=== PATIENT | female | born 1955 | race Caucasian/White ===

== ENCOUNTER → 2020-03-22 11:48 | Outpatient (BNVA) | payer OTHER, SELFPAY | PROVIDERS: Absent Provider Family Medicine; Visit Provider Family Medicine | DX: Z13.6 Encounter for screening for cardiovascular disorders (principal); E03.9 Hypothyroidism, unspecified | CPT/HCPCS: 80053; 80061; 84439; 84443; 84480; 85025 ==

== ENCOUNTER → 2020-12-21 13:41 | Outpatient (BNVA) | payer OTHER, SELFPAY | PROVIDERS: PCP Family Medicine; Visit Provider Family Medicine | DX: E03.9 Hypothyroidism, unspecified (principal); Z85.850 Personal history of malignant neoplasm of thyroid | CPT/HCPCS: 84432; 84439; 84443; 84480; 86800 ==

== ENCOUNTER 2021-01-04 13:04 | Outpatient (CLI) | payer OTHER, SELFPAY ==
--- NOTE | 2021-01-04 13:10 | MM_ITS ---
WS: [id number] Exam: [id number] Date/Time of Exam: 01/04/2021 1:17 PM Reason For Exam: SCREENING VIEWS: MLO and CC views both breasts. No priors. Findings: There was no sign of mass, architectural distortion or suspicious calcification in either breast. He terogeneously dense MM/[place] [id number] Impression: BI-RADS: 2-Benign FOLLOW-UP: 1 Year Follow-up This mammogram was also analyzed by the Computer Aided Detection System R2 Imag e [employer] Supervisor.
== END 2021-01-04 13:05 | disposition home or self-care (01) ==
LOC: RADSHAW 13:08
PROVIDERS: PCP Family Medicine; Visit Provider Family Medicine
DX: Z12.31 Encounter for screening mammogram for malignant neoplasm of breast (principal)
CPT/HCPCS: 77067

== ENCOUNTER → 2021-04-02 16:39 | Outpatient (BNVA) | payer OTHER, SELFPAY | PROVIDERS: PCP Family Medicine; Visit Provider Family Medicine | DX: Z20.822 Contact with and (suspected) exposure to COVID-19 (principal) | CPT/HCPCS: 87635 ==

== ENCOUNTER 2021-04-24 14:58 | Outpatient (CLI) | payer MEDICARE, SELFPAY ==
--- NOTE | 2021-04-24 15:07 | XRR_ITS ---
PROCEDURE INFORMATION: Exam: XR Left Knee Exam date and time: 04/24/2021 3:07 PM Age: 66 years old Clinical indication: Pain; Knee; Left; Additional info: Left knee pain TECHNIQUE: Imaging protocol: XR Left knee. Views: 3 views. COMPARISON: No relevant prior studies available. FINDINGS: Bones/joints: Moderate tricompartmental osteoarthritis. Soft tissues: Normal. XR/XR knee LT 3V* [id number] IMPRESSION: Moderate tricompartmental osteoarthritis.
== END 2021-04-24 14:59 | disposition home or self-care (01) ==
LOC: RAD 15:05
PROVIDERS: PCP Family Medicine; Visit Provider Family Medicine
DX: M17.12 Unilateral primary osteoarthritis, left knee (principal)
CPT/HCPCS: 73562

== ENCOUNTER → 2021-06-04 11:44 | Outpatient (BNVA) | payer MEDICARE, SELFPAY | PROVIDERS: PCP Family Medicine; Visit Provider Family Medicine | DX: Z13.6 Encounter for screening for cardiovascular disorders (principal); M25.562 Pain in left knee; E03.9 Hypothyroidism, unspecified; M17.12 Unilateral primary osteoarthritis, left knee; Z91.09 Other allergy status, other than to drugs and biological substances | CPT/HCPCS: 80053; 80061; 84439; 84443; 84480; 85025 ==

== ENCOUNTER 2021-09-24 14:14 | Outpatient (CLI) | payer MEDICARE, SELFPAY ==
--- NOTE | 2021-09-24 14:22 | XR_ITS ---
WS: [id number] XR hip LT 2-3V wo/w pel* [id number] REASON FOR EXAM: left hip pain FINDINGS: No fracture or focal bone lesion. Severe narrowing of the joint space with subchondral sclerosis and marginal osteophytosis of the acet abulum and femoral head. There appears to be [id number] articulation with flattening of the underly ing femoral head in the weightbearing portion of the joint. No soft tissue abnormality. XR/XR hip LT 2-3V wo/w pel* [id number] IMPRESSION: Severe osteoarthritis of the left hip with [id number] articulation and deform ity of the femoral head.
--- NOTE | 2021-09-24 14:22 | XR_ITS ---
WS: [id number] XR lumbar spine 2-3V* [id number] REASON FOR EXAM: chronic back pain FINDINGS: Mild rotatory scoliosis convex left. Mild biconcave compression deformities L1-L3. Most likely chronic. Significant narrowing of the L4-L5 disc space with endplate sclerosis. Moderate narrowing of the L5-S1 disc space with endplate sclerosis. 6 mm of anterolisthesis of L3 on L4. 4 mm of anterolisthesis of bowel 2 on L3. Degenerative facet joint changes L3-S1. XR/XR lumbar spine 2-3V* [id number] IMPRESSION: Degenerative spondylosis in the lumbar spine as above.
== END 2021-09-24 14:15 | disposition home or self-care (01) ==
PROVIDERS: PCP Family Medicine; Visit Provider Family Medicine
DX: M54.50 Low back pain, unspecified (principal); G89.29 Other chronic pain; M25.552 Pain in left hip
CPT/HCPCS: 72100; 73502

== ENCOUNTER 2021-12-01 16:56 | Emergency (ER) | payer MEDICARE, SELFPAY ==
[2021-12-01 17:02] VITALS: BP 154/66; PULSE 83; RESP 16; TEMP 36.5; O2SAT 95; BMI 25.0
--- NOTE | 2021-12-01 17:28 | W.ED.GENADLT ---
HPI - General Adult General: Chief complaint: General Medical Stated complaint: Knot in stomach Time Seen by Provider: 12/01/21 17:13 Source: patient Mode of arrival: ambulatory Limitations: no limitations History of Present Illness: Onset (ago): minute(s) Location: head Severity: mild PFSH ED PFSH: Medical History COVID-19 History of thyroid cancer Surgical History History of thyroidectomy, total Family History Brother ALS (amyotrophic lateral sclerosis) Mother Cancer kidney cancer and thyroid cancer Thyroid disease Father Diabetes Parkinson disease Thyroid disease Cancer thyroid cancer Grandmother Stroke Maternal Denies family history of Ovarian cyst Clotting disorder Hyperlipidemia Chronic kidney disease (CKD) Anesthesia complication Bleeding disorder Hypertension Social History Smoking and tobacco status: never smoked Alcohol intake: current Alcohol intake frequency: holidays/special occasions only Course Vital Signs: Vital signs: Vital Signs Temperature 97.7 F 12/01/21 17:02 Pulse Rate 79 12/01/21 17:43 Respiratory Rate 16 12/01/21 17:43 Blood Pressure 164/83 12/01/21 17:43 Pulse Oximetry 97 12/01/21 17:43 Oxygen Delivery Me thod 12/01/21 17:43 [facility] [place] - General Adult Lab Data : 12/01/21 17:58 12/01/21 17:58 Discharge Plan Discharge Condition: Stable Prescriptions: No Action multivitamin [Daily Multi-Vitamin] Tablet 1 tab PO DAILY garlic 300 mg capsule 300 mg PO DAILY Adult 50 Plus Probiotic 4 billion cell capsule 4,000 mmu cells PO DAILY Rx Instructions: administer with a meal turmeric 400 mg capsule 400 mg PO DAILY omega-3 fatty acids [Fish Oil Concentrate] 1,000 mg capsule 1,000 mg PO DAILY meloxicam [Mobic] 15 mg tablet 15 mg PO DAILY Qty: 90 1RF thyroid (pork) [[place] Thyroid] 15 mg tablet See Rx Instructions .ROUTE .COMPLEX Qty: 90 0RF Dose Instruction: TAKE 1 TABLET BY MOUTH EVERY DAY Rx Instructions: TAKE 1 TABLET BY MOUTH EVERY DAY thyroid (pork) [[place] Thyroid] 60 mg tablet 60 mg PO DAILY 90 Days Qty: 90 1RF Referrals: Kimberlyn Dillard DO [Primary Care Provider] - Coding Level of Care Code ED Vault Person for Chg Susi
[2021-12-01 17:43] VITALS: BP 164/83; PULSE 79; RESP 16; O2SAT 97
[2021-12-01 18:05] LABS: Basophils # 0.1 10^3/uL (0.0-0.1); Basophils % 0.7 %; Eosinophils # 0.1 10^3/uL (0.0-0.8); Eosinophils % 0.7 %; Hemoglobin 12.4 g/dL (11.5-15.3); Lymphocytes # 1.5 10^3/uL (0.8-4.8); Lymphocytes % 19.9 %; Mean Corpuscular HGB Conc 31.8 g/dL (30.0-36.0); Mean Corpuscular Hemoglobin 31.2 pg (28.0-34.0); Mean Corpuscular Volume 98.2 fl (81-99); Mean Platelet Volume 10.2 fL (7.4-10.4); Monocytes # 0.6 10^3/uL (0.2-0.9); Monocytes % 7.6 %; Neutrophils # 5.45 10^3/uL (1.8-7.7); Neutrophils % 70.8 %; Nucleated Red Blood Cells % 0 %; Platelet Count 191 10^3/cmm (130-400); Red Blood Count 3.97 10^6/uL (4.1-5.3); White Blood Count 7.7 10^3/uL (4.0-10.0)
--- NOTE | 2021-12-01 18:07 | CTR_ITS ---
PROCEDURE INFORMATION: Exam: CT Abdomen And Pelvis Without Contrast Exam date and time: 12/01/2021 6:16 PM Age: 66 years old Clinical indication: Abdominal pain; Additional info: Abd pain TECHNIQUE: Imaging protocol: Computed tomography of the abdomen and pelvis without contrast. Radiation optimization: All CT scans at this facility use at least one of these dose optimization techniques: automated exposure control; mA and/or kV adjustment per patient size (includes targeted exams where dose is matched to clinical indication); or iterative reconstruction. COMPARISON: CR XR hip LT 2-3V wo/w pel* [id number] 09/24/2021 2:27 PM RADIATION DOSE METRICS: Total DLP (mGy-cm): 496.5 FINDINGS: Liver: Normal. No mass. Gallbladder and bile ducts: Normal. No calcified stones. No ductal dilation. Pancreas: Normal. No ductal dilation. Spleen: Normal. No splenomegaly. Adrenal glands: Normal. No mass. Kidneys and ureters: Normal. No hydronephrosis. Stomach and bowel: Unremarkable. No obstruction. No mucosal thickening. Appendix: No evidence of appendicitis. Intraperitoneal space: Unremarkable. No free air. No significant fluid collection. Vasculature: Unremarkable. No abdominal aortic aneurysm. Lymph nodes: Unremarkable. No enlarged lymph nodes. Urinary bladder: Unremarkable as visualized. Reproductive: Unremarkable as visualized. Bones/joints: Severe left hip osteoarthritis. Soft tissues: Unremarkable. CT/CT abdomen pelvis wo con [id number] IMPRESSION: Negative for acute inflammatory process in the abdomen or pelvis.
--- NOTE | 2021-12-01 18:09 | W.ED.GENADLT ---
HPI - General Adult General: Chief complaint: General Medical Stated complaint: Knot in stomach Time Seen by Provider: 12/01/21 17:13 Source: patient Mode of arrival: ambulatory Limitations: no limitations History of Present Illness: 66-year-old female states that she been having some lower abdominal pain she states that she felt like she felt a palpable mass called a nurse and was concerned she may have an aneurysm states her pain is diffuse in nature rates it a 3 out of 10 denies any worsening improving factors. Associated symptoms: Deny chest pain, dyspnea, headache(s), nausea, rash or vomiting Review of Systems Const: Denies: fever(s), chills, body aches or change in appetite Eyes: Denies: blurry vision or eye discomfort ENMT: Denies: throat pain or dental pain Card: Denies: chest pain Resp: Denies: dyspnea GI: Denies: abdominal pain, nausea, vomiting or diarrhea : Denies: dysuria Musc: Denies: neck pain or back pain Skin/Breast: Denies: rash Neuro: Denies: headache(s) Psych: Denies: depression Alessandro/Lymph: Denies: easy bruising All/Imm: Denies: urticaria PFSH ED PFSH: Medical History COVID-19 History of thyroid cancer Surgical History History of thyroidectomy, total Family History Brother ALS (amyotrophic lateral sclerosis) Mother Cancer kidney cancer and thyroid cancer Thyroid disease Father Diabetes Parkinson disease Thyroid disease Cancer thyroid cancer Grandmother Stroke Maternal Denies family history of Ovarian cyst Clotting disorder Hyperlipidemia Chronic kidney disease (CKD) Anesthesia complication Bleeding disorder Hypertension Social History Smoking and tobacco status: never smoked Alcohol intake: current Alcohol intake frequency: holidays/special occasions only Physical Exam Const: COMMON NORMALS: no acute distress, patient oriented x3 and healthy appearing HENMT: COMMON NORMALS: normocephalic and atraumatic HEAD & SCALP: normocephalic and atraumatic Eye: COMMON NORMALS: Equal, round and reactive pupils present and EOMs intact bilaterally PUPIL: Yes Equal, round and reactive pupils present Neck/C-Spine: COMMON NORMALS: full ROM and supple Chest: COMMONS NORMALS: normal inspection of the chest and normal palpation of entire chest wall Resp: COMMON NORMALS: normal respiratory effort, No retractions, No use of accessory muscles and clear to auscultation bilaterally AUSCULTATION: clear to auscultation bilaterally Cardio: COMMON NORMALS: regular rate, regular rhythm and No murmurs present (Cardio) RATE: regular rate RHYTHM: regular rhythm GI: COMMON NORMALS: Normal to inspection, nondistended, normoactive bowel sounds present, Soft to palpation, non-tender and no masses PALPATION: Yes Soft to palpation Extremity: COMMON NORMALS: normal to inspection and full ROM Neuro: COMMON NORMALS: patient oriented x3, moves all extremities and no focal motor deficits Psych: COMMON NORMALS: mental status grossly normal, Normal thought process present and cooperative THOUGHT PROCESS: Normal thought process present Skin: COMMON NORMALS: no rashes or lesions noted and no wounds GENERAL SKIN EXAM: no rashes or lesions noted Course Vital Signs: Vital signs: Vital Signs Temperature 97.7 F 12/01/21 17:02 Pulse Rate 77 12/01/21 18:49 Respiratory Rate 18 12/01/21 18:49 Blood Pressure 144/84 12/01/21 18:49 Pulse Oximetry 95 12/01/21 18:49 Oxygen Delivery Me thod 12/01/21 18:49 [facility] - General Adult Medical Decision Making Patient presents with abdominal pain is mild in nature she is well-appearing here CT scan is normal she is stable for discharge she is to follow-up with PCP and return if worsening. Lab Data : 12/01/21 17:58 12/01/21 17:58 Radiology Impressions Abdomen/Pelvis CT 12/01/21 18:07 IMPRESSION: Negative for acute inflammatory process in the abdomen or pelvis. Laboratory Results WBC 7.7 10^3/uL (4.0-10.0) 12/01/21 17:58 RBC 3.97 10^6/uL (4.1-5.3) L 12/01/21 17:58 Hgb 12.4 g/dL (11.5-15.3) 12/01/21 17:58 Hct 39.0 % (37.0-47.0) 12/01/21 17:58 MCV 98.2 fl (81-99) 12/01/21 17:58 MCH 31.2 pg (28.0-34.0) 12/01/21 17:58 MCHC 31.8 g/dL (30.0-36.0) 12/01/21 17:58 RDW 12.0 % (12.1-15.1) L 12/01/21 17:58 Plt Count 191 10^3/cmm (130-400) 12/01/21 17:58 MPV 10.2 fL (7.4-10.4) 12/01/21 17:58 Neut % (Auto) 70.8 % 12/01/21 17:58 Lymph % (Auto) 19.9 % 12/01/21 17:58 Person % (Auto) 7.6 % 12/01/21 17:58 Eos % (Auto) 0.7 % 12/01/21 17:58 Baso % (Auto) 0.7 % 12/01/21 17:58 Neut # (Auto) 5.45 10^3/uL (1.8-7.7) 12/01/21 17:58 Lymph # (Auto) 1.5 10^3/uL (0.8-4.8) 12/01/21 17:58 Person # (Auto) 0.6 10^3/uL (0.2-0.9) 12/01/21 17:58 Eos # (Auto) 0.1 10^3/uL (0.0-0.8) 12/01/21 17:58 Baso # (Auto) 0.1 10^3/uL (0.0-0.1) 12/01/21 17:58 Nucleated RBC % (auto) 0 % 12/01/21 17:58 Nucleated RBCs # 0.0 /100WBC 12/01/21 17:58 Sodium 142 mmol/L (136-145) 12/01/21 17:58 Potassium 4.0 mmol/L (3.5-5.1) 12/01/21 17:58 Chloride 103 mmol/L (98-107) 12/01/21 17:58 Carbon Dioxide 29 mmol/L (22-29) 12/01/21 17:58 Anion Gap 14.0 (5-19) 12/01/21 17:58 BUN 12 mg/dL (8-23) 12/01/21 17:58 Creatinine 0.7 mg/dL (0.5-0.9) 12/01/21 17:58 GFR Calculation 84.0 mL/min (90-130) L 12/01/21 17:58 Glucose 94 mg/dL (65-115) 12/01/21 17:58 Calculated Osmolality 294 mOsm/kg (285-295) 12/01/21 17:58 Calcium 9.3 mg/dL (8.5-10.5) 12/01/21 17:58 Total Bilirubin 0.2 mg/dL (0.15-1.2) 12/01/21 17:58 AST 17 U/L (0-32) 12/01/21 17:58 ALT 14 U/L (0-33) 12/01/21 17:58 Alkaline Phosphatase 53 U/L (35-105) 12/01/21 17:58 Total Protein 6.7 g/dL (6.6-8.7) 12/01/21 17:58 Albumin 4.4 g/dL (3.5-5.2) 12/01/21 17:58 Globulin 2.3 g/dL (1.3-4.6) 12/01/21 17:58 Lipase 23 U/L (13-60) 12/01/21 17:58 Discharge Plan Discharge Patient Disposition: Home Clinical Impression: Abdominal pain Condition: Stable Prescriptions: No Action multivitamin [Daily Multi-Vitamin] Tablet 1 tab PO DAILY garlic 300 mg capsule 300 mg PO DAILY Adult 50 Plus Probiotic 4 billion cell capsule 4,000 mmu cells PO DAILY Rx Instructions: administer with a meal turmeric 400 mg capsule 400 mg PO DAILY omega-3 fatty acids [Fish Oil Concentrate] 1,000 mg capsule 1,000 mg PO DAILY meloxicam [Mobic] 15 mg tablet 15 mg PO DAILY Qty: 90 1RF thyroid (pork) [[place] Thyroid] 15 mg tablet See Rx Instructions .ROUTE .COMPLEX Qty: 90 0RF Dose Instruction: TAKE 1 TABLET BY MOUTH EVERY DAY Rx Instructions: TAKE 1 TABLET BY MOUTH EVERY DAY thyroid (pork) [[place] Thyroid] 60 mg tablet 60 mg PO DAILY 90 Days Qty: 90 1RF Discharge Orders: Discharge ED (Routine); Ordered 12/01/21 Ordered By: Keith Yi Referrals: Kimberlyn Dillard DO [Primary Care Provider] - 1-3 days Discharge Diet: Advance as tolerated Discharge Activity: Resume usual activity Patient Instructions: Abdominal Pain (ED) Coding Level of Care Code ED Contract Law Specialist for Chg Fwd Exam Comprehensive
[2021-12-01 18:24] LABS: Alanine Aminotransferase 14 U/L (0-33); Albumin Level 4.4 g/dL (3.5-5.2); Alkaline Phosphatase 53 U/L (35-105); Aspartate Amino Transferase 17 U/L (0-32); Blood Urea Nitrogen 12 mg/dL (8-23); Calcium 9.3 mg/dL (8.5-10.5); Carbon Dioxide 29 mmol/L (22-29); Chloride 103 mmol/L (98-107); Creatinine Clr Calc Pharmacy 73.0358; Globulin 2.3 g/dL (1.3-4.6); Glucose 94 mg/dL (65-115); Lipase 23 U/L (13-60); Osmolality Calculated 294 mOsm/kg (285-295); Sodium 142 mmol/L (136-145); Total Bilirubin 0.2 mg/dL (0.15-1.2); Total Protein 6.7 g/dL (6.6-8.7)
[2021-12-01 18:49] VITALS: BP 144/84; PULSE 77; RESP 18; O2SAT 95
[2021-12-01 19:03] LABS: Add Urine Microscopic? NO; Charge for UA Resulting for Rev
[2021-12-01 19:19] LABS: Bilirubin Urine Neg (Negative); Blood Urine Neg (Negative); Glucose Urine UA Norm (Normal); Ketones Urine Negative (Negative); Nitrate Urine Negative (Negative); Protein Urine Neg (Negative); Specific Gravity, Urine 1.015 (1.005-1.030); Urine Appearance Clear (CLEAR); Urine Color Yellow (Yellow); Urobilinogen Urine Neg (Negative); pH Urine 8 (5-7)
[2021-12-01 19:20] VITALS: BP 145/82; PULSE 74; RESP 18; O2SAT 97
[2021-12-01 19:20] LABS: Leukocyte Esterase Urine Negative (Negative); Sulfosalicylic Acid Urine Negative (Negative)
== END 2021-12-01 19:21 | disposition home or self-care (01) ==
PROVIDERS: Family Medicine; Emergency Provider Emergency Medicine; PCP Family Medicine
DX: R10.30 Lower abdominal pain, unspecified (principal); Z86.16 Personal history of COVID-19
CPT/HCPCS: 36415; 74176; 80053; 81003; 83690; 85025; 99284

== ENCOUNTER → 2022-01-11 12:05 | Outpatient (BNVA) | payer MEDICARE, SELFPAY | PROVIDERS: PCP Family Medicine; Visit Provider Family Medicine | DX: M17.12 Unilateral primary osteoarthritis, left knee (principal); E03.9 Hypothyroidism, unspecified; Z85.850 Personal history of malignant neoplasm of thyroid | CPT/HCPCS: 84432; 84439; 84443; 84480; 86800 ==

== ENCOUNTER 2022-05-21 13:53 | Outpatient (CLI) | payer MEDICARE, SELFPAY ==
--- NOTE | 2022-05-21 14:10 | MM_ITS ---
WS: [id number] BILATERAL 3D TOMOSYNTHESIS DIGITAL SCREENING MAMMOGRAPHY WITH CAD CLINICAL INFORMATION: SCREENING HISTORY: Screening mammogram. No current complaints. COMPARISON: 2020 TECHNIQUE: Bilateral CC and MLO views. FINDINGS: The breasts are composed of heterogeneous fibroglandular density tissue, which can limit the detectio n of small underlying mass lesions. No suspicious mass, asymmetry, calcifications, or architectural d istortion. No evidence of malignancy. Biopsy clip LEFT breast. Punctate and lucent centered calcifica tions. Vascular calcifications. MM/[place] [id number] IMPRESSION: BI-RADS: 2-Benign FOLLOW UP: 1 Year Follow-up Recommend return to annual screening mammography.
== END 2022-05-21 13:54 | disposition home or self-care (01) ==
LOC: RAD 13:58
PROVIDERS: PCP Family Medicine; Visit Provider Family Medicine
DX: Z12.31 Encounter for screening mammogram for malignant neoplasm of breast (principal)
CPT/HCPCS: 77063; 77067

== ENCOUNTER → 2022-08-14 13:31 | Outpatient (BNVA) | payer MEDICARE, SELFPAY | PROVIDERS: PCP Family Medicine; Visit Provider Nurse Practitioner Family | DX: L81.4 Other melanin hyperpigmentation (principal); D22.5 Melanocytic nevi of trunk; Z71.89 Other specified counseling; L85.3 Xerosis cutis; L57.8 Other skin changes due to chronic exposure to nonionizing radiation; L98.8 Other specified disorders of the skin and subcutaneous tissue | CPT/HCPCS: 99214 ==

== ENCOUNTER → 2022-09-23 13:27 | Outpatient (BNVA) | payer MEDICARE, SELFPAY | PROVIDERS: PCP Family Medicine; Visit Provider Family Medicine | DX: Z85.850 Personal history of malignant neoplasm of thyroid (principal) | CPT/HCPCS: 84432; 84439; 84443; 84480; 86800 ==

== ENCOUNTER → 2023-04-24 11:02 | Outpatient (BNVA) | payer MEDICARE, SELFPAY | PROVIDERS: PCP Family Medicine; Visit Provider Nurse Practitioner Family | DX: L57.8 Other skin changes due to chronic exposure to nonionizing radiation (principal); D22.62 Melanocytic nevi of left upper limb, including shoulder; L81.4 Other melanin hyperpigmentation; L90.5 Scar conditions and fibrosis of skin; D23.72 Other benign neoplasm of skin of left lower limb, including hip; L82.1 Other seborrheic keratosis; S90.111A Contusion of right great toe without damage to nail, initial encounter; X58.XXXA Exposure to other specified factors, initial encounter | CPT/HCPCS: 99213 ==

== ENCOUNTER → 2023-05-12 11:49 | Outpatient (BNVA) | payer MEDICARE, SELFPAY | PROVIDERS: PCP Family Medicine; Visit Provider Family Medicine | DX: Z13.6 Encounter for screening for cardiovascular disorders (principal); E03.9 Hypothyroidism, unspecified | CPT/HCPCS: 80053; 80061; 84439; 84443; 84480; 85025 ==

== ENCOUNTER 2023-05-26 13:24 | Outpatient (CLI) | payer MEDICARE, SELFPAY ==
--- NOTE | 2023-05-26 13:30 | MM_ITS ---
WS: [id number] BILATERAL 3D TOMOSYNTHESIS DIGITAL SCREENING MAMMOGRAPHY WITH CAD CLINICAL INFORMATION: screening HISTORY: Screening mammogram. No current complaints. COMPARISON: 2022 TECHNIQUE: Bilateral CC and MLO views. FINDINGS: The breasts are composed of heterogeneous fibroglandular density tissue, which can limit the detectio n of small underlying mass lesions. No suspicious mass, asymmetry, calcifications, or architectural d istortion. No evidence of malignancy. Incidental punctate and lucent centered calcifications. Biopsy clip LEFT breast. Vascular calcifications. IMPRESSION: MM/[place] [id number] BI-RADS: 2-Benign FOLLOW UP: 1 Year Follow-up Recommend return to annual screening mammography.
== END 2023-05-26 13:25 | disposition home or self-care (01) ==
LOC: RAD 13:25
PROVIDERS: PCP Family Medicine; Visit Provider Family Medicine
DX: Z12.31 Encounter for screening mammogram for malignant neoplasm of breast (principal)
CPT/HCPCS: 77063; 77067

== ENCOUNTER → 2023-05-27 13:45 | Outpatient (BNVA) | payer MEDICARE, SELFPAY | PROVIDERS: PCP Family Medicine; Visit Provider Nurse Practitioner Women's Health | DX: Z78.0 Asymptomatic menopausal state (principal); Z01.419 Encounter for gynecological examination (general) (routine) without abnormal findings | CPT/HCPCS: 87624 ==

== ENCOUNTER 2023-06-05 13:18 | Outpatient (CLI) | payer MEDICARE, SELFPAY ==
--- NOTE | 2023-06-05 13:30 | XR_ITS ---
WS: [id number] DEXA (DUAL ENERGY X-RAY ABSORPTIOMETRY) Bone mineral density was performed using a [employer] machine. HISTORY: Z78.0 - Asymptomatic menopausal state COMPARISON: None available. Lumbar spine BMD (L1-L4): 1.066 g/cm2 T score: -1.0 Z score: 0.4 Total hip BMD: Left: 0.802. T score: -1.6 Z score: -0.5 Left forearm BMD: 0.803 g/cm2. T score: -0.8 Z score: 0.7 10 year probability of a major osteoporotic fracture is 15.2%. IMPRESSION: OSTEOPENIA based upon the WHO classification for females.
== END 2023-06-05 13:19 | disposition home or self-care (01) ==
LOC: RAD 13:19
PROVIDERS: PCP Family Medicine; Visit Provider Nurse Practitioner Women's Health
DX: Z78.0 Asymptomatic menopausal state (principal); M85.80 Other specified disorders of bone density and structure, unspecified site
CPT/HCPCS: 77080

== ENCOUNTER → 2023-06-25 11:29 | Outpatient (BNVA) | payer MEDICARE, SELFPAY | PROVIDERS: PCP Family Medicine; Visit Provider Family Medicine | DX: E03.9 Hypothyroidism, unspecified (principal) | CPT/HCPCS: 84439; 84443; 84480 ==

== ENCOUNTER → 2023-10-21 13:42 | Outpatient (BNVA) | payer MEDICARE, SELFPAY | DX: E03.9 Hypothyroidism, unspecified (principal) | CPT/HCPCS: 80053; 84432; 84439; 84443; 85025; 86800 ==

== ENCOUNTER → 2024-05-21 10:17 | Outpatient (BNVA) | payer MEDICARE, SELFPAY | PROVIDERS: Visit Provider Nurse Practitioner Family | DX: L70.0 Acne vulgaris (principal); L57.8 Other skin changes due to chronic exposure to nonionizing radiation; L81.4 Other melanin hyperpigmentation; D22.5 Melanocytic nevi of trunk; L82.1 Other seborrheic keratosis; I83.93 Asymptomatic varicose veins of bilateral lower extremities | CPT/HCPCS: 99214 ==

== ENCOUNTER → 2024-06-03 11:27 | Outpatient (BNVA) | payer MEDICARE, SELFPAY | PROVIDERS: Visit Provider Nurse Practitioner Women's Health | DX: Z01.419 Encounter for gynecological examination (general) (routine) without abnormal findings (principal) | CPT/HCPCS: 87624 ==

== ENCOUNTER 2024-06-07 11:38 | Outpatient (CLI) | payer MEDICARE, SELFPAY ==
--- NOTE | 2024-06-07 11:40 | MM_ITS ---
WS: [id number] BILATERAL SCREENING DIGITAL TOMOSYNTHESIS MAMMOGRAM WITH CAD HISTORY: Z12.31 - Encounter for screening mammogram for malignant ... COMPARISON: 05/26/2023, 05/21/2022 Bilateral CC and MLO views with tomosynthesis and synthetic mammography submitted. Computer aided detection analyzed. Breast composition: The breasts are heterogeneously dense, which may obscure small masses. No suspicious masses, microcalcifications or architectural distortion. Benign calcifications in each breast. Additional biopsy clip LEFT breast. MM/MM scr BI tomosynthesis [id number] IMPRESSION: BI-RADS: 2 - Benign FOLLOW UP: 1 Year Follow-up
== END 2024-06-07 11:39 | disposition home or self-care (01) ==
LOC: RAD 11:39
PROVIDERS: Visit Provider Nurse Practitioner Women's Health
DX: Z12.31 Encounter for screening mammogram for malignant neoplasm of breast (principal); R92.333 Mammographic heterogeneous density, bilateral breasts; R92.1 Mammographic calcification found on diagnostic imaging of breast
CPT/HCPCS: 77063; 77067

== ENCOUNTER → 2024-08-12 09:43 | Outpatient (BNVA) | payer MEDICARE, SELFPAY | PROVIDERS: PCP Family Medicine; Visit Provider Family Medicine | DX: E89.0 Postprocedural hypothyroidism (principal); E55.9 Vitamin D deficiency, unspecified; M85.80 Other specified disorders of bone density and structure, unspecified site; Z78.0 Asymptomatic menopausal state; Z85.850 Personal history of malignant neoplasm of thyroid | CPT/HCPCS: 85025; 86800 ==

== ENCOUNTER → 2024-08-18 11:31 | Outpatient (BNVA) | payer MEDICARE, SELFPAY | PROVIDERS: PCP Family Medicine; Visit Provider Family Medicine | DX: Z78.0 Asymptomatic menopausal state (principal); Z85.850 Personal history of malignant neoplasm of thyroid; E89.0 Postprocedural hypothyroidism; E55.9 Vitamin D deficiency, unspecified; M85.80 Other specified disorders of bone density and structure, unspecified site | CPT/HCPCS: 80053; 82306; 84439; 84443; 84481 ==

== ENCOUNTER → 2024-10-04 13:56 | Outpatient (BNVA) | payer MEDICARE, SELFPAY | PROVIDERS: PCP Family Medicine; Visit Provider Family Medicine | DX: Z85.850 Personal history of malignant neoplasm of thyroid (principal); E89.0 Postprocedural hypothyroidism | CPT/HCPCS: 84439; 84481 ==

== ENCOUNTER → 2024-10-05 08:55 | Outpatient (BNVA) | payer MEDICARE, SELFPAY | PROVIDERS: PCP Family Medicine; Visit Provider Family Medicine | DX: Z85.850 Personal history of malignant neoplasm of thyroid (principal) | CPT/HCPCS: 84439; 84481 ==

== ENCOUNTER → 2024-11-18 15:24 | Outpatient (BNVA) | payer MEDICARE, SELFPAY | PROVIDERS: PCP Family Medicine; Visit Provider Family Medicine | DX: Z85.850 Personal history of malignant neoplasm of thyroid (principal); E89.0 Postprocedural hypothyroidism | CPT/HCPCS: 84432; 84439; 84443; 84481; 86800 ==

== ENCOUNTER 2025-01-26 13:06 | Outpatient (CLI) | payer MEDICARE, SELFPAY | END 2025-01-26 13:07 | disposition home or self-care (01) | LOC: SLEEP 13:07 | PROVIDERS: PCP Family Medicine; Referring Provider Family Medicine; Visit Provider Internal Medicine Pulmonary Disease | DX: G47.33 Obstructive sleep apnea (adult) (pediatric) (principal); R06.83 Snoring | CPT/HCPCS: G0399 ==